=== PATIENT | male | born 1995 | race Caucasian/White ===

== ENCOUNTER 2024-10-07 15:52 | Emergency (ER) | payer MEDICAID, SELFPAY ==
[2024-10-07 16:13] VITALS: BP 153/87; PULSE 109; RESP 16; TEMP 37.3; O2SAT 97
[2024-10-07 16:26] VITALS: PULSE 120; RESP 18; O2SAT 99
--- NOTE | 2024-10-07 16:42 | EDRME_ITS ---
Rapid Medical Screening Exam E Arrival date/time: 10/07/24 15:52 29-year-old male presents via EMS patient reports [facility] Patient reports he is from [place]. Patient does admit to schizophrenia and drug abuse. Patient reports generalized body aches Vital signs: Vital Signs Temperature 99.2 F 10/07/24 16:13 Pulse Rate 109 H 10/07/24 16:13 Respiratory Rate 16 10/07/24 16:13 Blood Pressure 153/87 H 10/07/24 16:13 Pulse Oximetry (%) 97 10/07/24 16:13 Oxygen Delivery Method Room Air 10/07/24 16:13
[2024-10-07 17:24] LABS: Basophils % (Auto) 0 % (0-2.5); Eosinophils # (Auto) 0.2 Thou/mm3 (0.0-0.5); Eosinophils % (Auto) 2 % (0-10); Hematocrit 35.7 % (41.0-53.0); Hemoglobin 12.2 g/dL (13.5-16.0); Immature Granulocytes % (Auto) 1 % (0-0); Immature Granulocytes Auto 0.09 Thou/mm3 (0.00-0.00); Lymphocytes # (Auto) 2.6 Thou/mm3 (1.0-4.8); Lymphocytes % (Auto) 30 % (10-50); Mean Corpuscular HGB Conc 34.2 g/dl (31.0-37.0); Mean Corpuscular Hemoglobin 30.7 pg (25.0-35.0); Mean Corpuscular Volume 90 fL (80-100); Monocytes # (Auto) 0.9 Thou/mm3 (0.0-0.8); Monocytes % (Auto) 10 % (0-12); Neutrophils % (Auto) 56 % (37-80); Nucleated Red Blood Cell % 0 /100 WBC (0); Platelet Count 384 Thou/mm3 (140-440); RDW Standard Deviation 43.1 fL (35.1-43.9); Red Blood Count 3.97 Miln/mm3 (4.50-5.90); White Blood Count 8.8 Thou/mm3 (3.8-10.6)
[2024-10-07 17:33] LABS: Alanine Aminotransferase 70 U/L (10-49); Albumin, Serum 4.1 gm/dL (3.5-5.0); Albumin/Globulin Ratio 1.9 (1.2-2.2); Alkaline Phosphatase 72 U/L (46-116); Anion Gap 8 (7-16); Aspartate Amino Transferase 37 U/L (0-34); BUN/Creatinine Ratio 19 Ratio (12-20); Bilirubin,Total 0.3 mg/dL (0.3-1.2); Blood Urea Nitrogen 13 mg/dL (9-23); Calcium 8.2 mg/dL (8.3-10.6); Calcium (Corrected) 8.2 mg/dL (8.5-10.1); Chloride 88 mMol/L (98-107); Creatinine (Component) 0.7 mg/dL (0.6-1.3); Globulin 2.2 gm/dL (2.3-3.5); Glucose 100 mg/dL (74-106); Lipase 52 U/L (12-53); Osmolality,Calculated 251 (275-295); Potassium 3.9 mMol/L (3.4-5.1); Sodium 125 mMol/L (136-145); Total Protein 6.3 gm/dL (5.7-8.2); eGFR > 60 See Note
[2024-10-07 20:37] LABS: Collection Type, Urine Clean Catch
[2024-10-07 20:58] LABS: Bilirubin,Urine Negative (Negative); Blood,Urine Negative (Negative); Clarity,Urine Clear (Clear/Hazy); Color,Urine Colorless (Lt Yel-Yel); Culture Indicated,Urine Not Indicated; Glucose, Urine Negative (Negative); Ketones,Urine Negative (Negative); Leukocyte Esterase,Urine Negative (Negative); Nitrite,Urine Negative (Negative); Protein,Urine Negative (Neg - Trace); Specific Gravity,Urine 1.004 (1.001-1.035); Urobilinogen,Urine Negative mg/dL (0.0-1.0)
[2024-10-07 20:59] LABS: RBC,Urine 2 /hpf (0-3); Squamous Epithelial Cell,Urine 4 /hpf (0-5); WBC,Urine 2 /hpf (0-5)
[2024-10-07 21:00] LABS: Mucus,Urine 2+ /lpf
[2024-10-07 21:01] LABS: Alcohol, Urine Negative (Negative); Amphetamine/Methamp Scrn,U Negative (Negative); Barbiturate Screen,Urine Negative (Negative); Benzodiazepines Screen,Urine Negative (Negative); Benzoylecgonine Screen, Ur Negative (Negative); Fentanyl Screen,Urine Negative (Negative); Opiate Screen,Urine Negative (Negative); THC Screen,Urine Negative (Negative)
--- NOTE | 2024-10-07 21:35 | PC.NURSE ---
NO ANSWER AT ER LOBBY OR OUTSIDE ER TO BE EVALUATED.
--- NOTE | 2024-10-07 21:36 | PC.NURSE ---
NO ANSWER AT ER LOBBY OR OUTSIDE ER TO BE RE EVALUATED.
--- NOTE | 2024-10-07 22:08 | PC.NURSE ---
NO ANSWER AT ER LOBBY OR OUTSIDE ER TO BE RE EVALUATED.
== END 2024-10-07 22:09 | disposition left against medical advice (07) ==
PROVIDERS: Nurse Practitioner Primary Care; Emergency Provider Emergency Medicine
DX: R52 Pain, unspecified (principal); F20.9 Schizophrenia, unspecified; F19.10 Other psychoactive substance abuse, uncomplicated; Z53.29 Procedure and treatment not carried out because of patient's decision for other reasons
CPT/HCPCS: 36415; 80053; 80307; 80320; 81001; 83690; 85025; 99281; G0480

== ENCOUNTER 2024-12-12 19:56 | Emergency (ER) | payer MEDICAID, SELFPAY ==
[2024-12-12 19:59] VITALS: PULSE 75; O2SAT 96; BMI 27.2
[2024-12-12 20:13] VITALS: BP 124/79; PULSE 74; RESP 18; TEMP 37.1; O2SAT 97
--- NOTE | 2024-12-12 20:59 | PD.EDPSYCH ---
ED Psych RME/HPI General Chief Complaint: Psychiatric Symptoms Stated Complaint: HEARING VOICES Time Seen by Provider: 12/12/24 20:52 Arrival date/time: 12/12/24 19:56 RME / HPI RME / HPI Narrative: 29-year-old male presents to the ED with a complaint of hearing voices. He has been hearing voices for a while. He would like to be admitted for a voluntary 5150. The voices keep telling him did you do it . He denies any suicidal or homicidal ideation. I have greeted and performed a focused initial assessment of this patient. A comprehensive ED assessment and evaluation of the patient, analysis of all test results, and completion of the medical decision making process will be conducted by additional ED providers. Course Vital Signs Vital signs: Vital Signs Temperature 98.7 F 12/12/24 20:13 Pulse Rate 74 12/12/24 20:13 Respiratory Rate 18 12/12/24 20:13 Blood Pressure 124/79 12/12/24 20:13 Pulse Oximetry (%) 97 12/12/24 20:13 Oxygen Delivery Method Room Air 12/12/24 20:13 Discharge Plan Prescriptions/Referrals Referrals: No Primary/Family,Physician [Primary Care Provider] - In 1 week Patient/Caregiver Discharge Instructions Print Language: Citizen Of [place]
--- NOTE | 2024-12-12 21:01 | EDRME_ITS ---
<Statement entered by Candy Hairston MD - 12/13/24 04:07> As co-signing physician, I was present and available for consult prn. I concur with the plan and care as documented by the midlevel provider. Rapid Medical Screening Exam RME Arrival date/time: 12/12/24 19:56 Chief Complaint: Psychiatric Symptoms Time Seen by Provider: 12/12/24 20:52 Vital signs: Vital Signs Temperature 98.7 F 12/12/24 20:13 Pulse Rate 74 12/12/24 20:13 Respiratory Rate 18 12/12/24 20:13 Blood Pressure 124/79 12/12/24 20:13 Pulse Oximetry (%) 97 12/12/24 20:13 Oxygen Delivery Method Room Air 12/12/24 20:13 RME Narrative: 29-year-old male presents to the ED with a complaint of hearing voices. He has been hearing voices for a while. He would like to be admitted for a voluntary 5150. The voices keep telling him did you do it . He denies any suicidal or homicidal ideation. I have greeted and performed a focused initial assessment of this patient. A comprehensive ED assessment and evaluation of the patient, analysis of all test results, and completion of the medical decision making process will be conducted by additional ED providers.
[2024-12-12 21:39] LABS: Collection Type, Urine Clean Catch; Squamous Epithelial Cell,Urine 0 /hpf (0-5)
[2024-12-12 21:43] LABS: Bilirubin,Urine Negative (Negative); Blood,Urine Negative (Negative); Clarity,Urine Clear (Clear/Hazy); Color,Urine Lt-Yellow (Lt Yel-Yel); Culture Indicated,Urine Not Indicated; Glucose, Urine Negative (Negative); Ketones,Urine Negative (Negative); Leukocyte Esterase,Urine Negative (Negative); Nitrite,Urine Negative (Negative); PH,Urine 6.5 (5.0-7.0); Protein,Urine Negative (Neg - Trace); RBC,Urine 1 /hpf (0-3); Specific Gravity,Urine 1.026 (1.001-1.035); Urobilinogen,Urine Negative mg/dL (0.0-1.0); WBC,Urine 1 /hpf (0-5)
[2024-12-12 21:50] LABS: Amphetamine/Methamp Scrn,U Negative (Negative); Barbiturate Screen,Urine Negative (Negative); Benzodiazepines Screen,Urine Negative (Negative); Benzoylecgonine Screen, Ur Negative (Negative); Fentanyl Screen,Urine Negative (Negative); Opiate Screen,Urine Negative (Negative); THC Screen,Urine Negative (Negative)
[2024-12-12 22:00] LABS: Basophils # (Auto) 0.0 Thou/mm3 (0.0-0.2); Basophils % (Auto) 0 % (0-2.5); Eosinophils # (Auto) 0.4 Thou/mm3 (0.0-0.5); Eosinophils % (Auto) 6 % (0-10); Hematocrit 38.1 % (41.0-53.0); Hemoglobin 12.8 g/dL (13.5-16.0); Immature Granulocytes Auto 0.05 Thou/mm3 (0.00-0.00); Lymphocytes # (Auto) 3.0 Thou/mm3 (1.0-4.8); Lymphocytes % (Auto) 45 % (10-50); Mean Corpuscular HGB Conc 33.6 g/dl (31.0-37.0); Mean Corpuscular Hemoglobin 31.4 pg (25.0-35.0); Mean Corpuscular Volume 93 fL (80-100); Monocytes # (Auto) 0.8 Thou/mm3 (0.0-0.8); Monocytes % (Auto) 12 % (0-12); Neutrophils # (Auto) 2.4 Thou/mm3 (1.8-7.7); Neutrophils % (Auto) 37 % (37-80); Nucleated Red Blood Cell # 0.00 Thou/mm3 (0.00-0.00); Nucleated Red Blood Cell % 0 /100 WBC (0); Platelet Count 243 Thou/mm3 (140-440); RDW Standard Deviation 47.0 fL (35.1-43.9); Red Blood Count 4.08 Miln/mm3 (4.50-5.90); White Blood Count 6.6 Thou/mm3 (3.8-10.6)
[2024-12-12 22:19] LABS: Acetaminophen < 2.0 mcg/mL (10.0-20.0); Alcohol, Blood Medical < 3.0 mg/dL (0-10.0); Anion Gap 5 (7-16); BUN/Creatinine Ratio 14 Ratio (12-20); Blood Urea Nitrogen 13 mg/dL (9-23); Calcium 9.9 mg/dL (8.3-10.6); Carbon Dioxide 30.9 mMol/L (20.0-31.0); Chloride 104 mMol/L (98-107); Creatinine (Component) 0.9 mg/dL (0.6-1.3); Estimated Creatinine Clearance 123.9 mL/min (>60); Glucose 100 mg/dL (74-106); Osmolality,Calculated 279 (275-295); Potassium 4.2 mMol/L (3.4-5.1); Sodium 140 mMol/L (136-145); eGFR > 60 See Note
[2024-12-12 23:41] VITALS: BP 145/80; PULSE 60; RESP 17; TEMP 36.6; O2SAT 99
--- NOTE | 2024-12-13 04:03 | PD.EDPSYCH ---
ED Psych RME/HPI General Chief Complaint: Psychiatric Symptoms Stated Complaint: HEARING VOICES Time Seen by Provider: 12/12/24 20:52 Arrival date/time: 12/12/24 19:56 RME / HPI RME / HPI Narrative: 29-year-old male presents to the ED with a complaint of hearing voices. He has been hearing voices for a while. He would like to be admitted for a voluntary 5150. The voices keep telling him did you do it . He denies any suicidal or homicidal ideation. I have greeted and performed a focused initial assessment of this patient. A comprehensive ED assessment and evaluation of the patient, analysis of all test results, and completion of the medical decision making process will be conducted by additional ED providers. --------- Dr. Hairston?s Main ED Evaluation: 29yo male presents to the ED for a chief complaint of auditory hallucinations. Patient states he has been hearing voices for a while and is requesting a psychiatric evaluation. Patient denies any SI or HI. No other complaints reported. Review of Systems Review of Systems Systems Reviewed: All systems reviewed, normal except as documented Past Medical History Past Medical History NEUROLOGIC: Negative Neurological Disorders CARDIAC: Negative Cardiac Disorders or Congestive Heart Failure RESPIRATORY: Negative Respiratory Disorders or Chronic Obstructive Pulmonary Disease (COPD) GASTROINTESTINAL: Negative Gastrointestinal Disorders, Hepatitis or Colorectal Cancer GENITOURINARY: Negative Genitourinary Disorders, Renal Disease or Prostate Cancer REPRODUCTIVE: Negative Breast Cancer, Genital Herpes, Gonorrhea, Syphilis or Testicular Cancer MUSCULOSKELETAL: Negative Musculoskeletal Disorders or Bone Cancer ENT: Negative History of ENT Problems ENDOCRINE: Negative Endocrine Disorders, Diabetes Mellitus Type 1 or Diabetes Mellitus Type 2 HEMATOLOGIC: Negative Blood Disorders OTHER HISTORY: Negative Autoimmune Disease, Anesthesia Reactions, Organ Transplant, MRSA, VRSA, Vancomycin-Resistant Enterococci, Human Immunodeficiency Virus (HIV), Chicken Pox, Measles, Mumps, Rubella (Luxembourger Measles), Pertussis, Clostridium Difficile, Cancer, Breast Cancer, Colorectal Cancer, Lung Cancer, Prostate Cancer or Testicular Cancer Family History FAMILY HISTORY: Negative Family Cardiac Disorders Surgical History SURGICAL: Negative Cardiac Surgery, Endocrine Surgery, Ear Surgery, Abdominal Surgery, Penile Implant, Nephrectomy, Ureteral Stent, Transurethral Resection, Joint Replacement, Neurologic Surgery, Brain Shunt, Vasectomy, Organ Transplant or ESWL Social History SMOKING STATUS: Current every day smoker ED Exam Narrative Physical exam: GENERAL APPEARANCE: alert and oriented x 4, well-developed, well-nourished, no acute distress VITALS: All vitals were reviewed and the pulse ox is 99% on room air, which is normal according to my interpretation. HEENT: Normocephalic, atraumatic; pupils equal, round, reactive to light; EOMI; mucous membranes pink, moist; oropharynx clear NECK: Supple LUNGS: CTABL; no wheezes, no rales, no rhonchi HEART: Regular rate, regular rhythm; normal S1, S2; no murmurs ABDOMEN: non distended; normal BS; soft, no tenderness, no guarding, no rebound; no masses, no organomegaly, no hernia BACK: no CVA tenderness EXTREMITIES: atraumatic; no edema NEUROLOGIC: awake; alert and oriented x4; cranial nerves II-XII grossly intact; no focal sensory or motor deficits PSYCHIATRIC: appropriate mood and affect SKIN: warm, dry, normal color; no rashes Course Quality Measures none Orders Category Date Time Status Acetaminophen Stat Lab 12/12/24 21:30 Completed Alcohol, Blood Medical Stat Lab 12/12/24 21:30 Completed Basic Metabolic Panel Stat Lab 12/12/24 21:30 Completed CBC Stat Lab 12/12/24 21:30 Completed Drug Screen,Urine Stat Lab 12/12/24 21:30 Completed Urinalysis, C/S if Indicated Stat Lab 12/12/24 21:30 Completed Vital Signs Vital signs: Vital Signs Temperature 98.7 F 12/12/24 20:13 Pulse Rate 74 12/12/24 20:13 Respiratory Rate 18 12/12/24 20:13 Blood Pressure 124/79 12/12/24 20:13 Pulse Oximetry (%) 97 12/12/24 20:13 Oxygen Delivery Method Room Air 12/12/24 20:13 Psych MDM Narrative MDM Narrative:: Scribe Attestation: 12/13/24 - Joana Grossman am scribing for and in the presence of Dr. Hairston. Patient is medically clear for crisis evaluation. Patient data External records reviewed:: [facility] previous records (Per chart review, patient has no previous ED visits or admissions to this facility.) Clinical information provided by:: patient Social determinants that could affect healthcare access:: none Patient has the following chronic illnesses:: none How is presenting disease/condition affected by chronic disease/condition?: no chronic disease Evaluation data The following diagnostics were reviewed and interpreted by me:: lab results Lab and/or radiology exams considered but not ordered:: none Interpretation Summary: CBC normal, BMP normal, UA unremarkable, UDS negative, Blood Alcohol negative. Medications / Prescriptions Medications or Prescriptions considered but not ordered:: none Medication administrations:: none Consultations Consultation(s) initiated? (list below): No Diagnosis Psych Differential Diagnosis: other (hallucination, schizophrenia, drug-induced psychosis) Most likely diagnosis given after review of the tests above:: see clinical impression below Admission Indicated Admission indicated?: not indicated Admission Request Was there a request for admission?: No Disposition Plan Disposition Plan: other (specify) (Signed out to Dr. Suarez at 0600 pending crisis evaluation.) Discharge Plan Prescriptions/Referrals Referrals: No Primary/Family,Physician [Primary Care Provider] - In 1 week Problem List Clinical Impression: Auditory hallucinations Patient/Caregiver Discharge Instructions Print Language: [place]
--- NOTE | 2024-12-13 06:26 | EDNOTE_ITS ---
Emergency Room Addendum <Tatyana Holly - Last Filed: 12/13/24 08:03> Addendum Narrative: 0600: Care assumed from Dr. Hairston, the previous shift emergency physician. Past medical, surgical, social and family history reviewed. Vitals and home medications reviewed. I will assume the care of the patient at this time, pending mental health evaluation. Please refer to the emergency department record for history and examination from initial visit.?The following addendum documentation note is intended to reflect any pending information, findings, or radiology results not included in the patient?s initial chart. 0800: bilingual social worker reports she was met with and evaluated the patient. Reports at this time he is not suicidal or homicidal and provided patient with resources. Patient was provided with shower, food, and clothing in the ED. <Samuel Suarez MD - Last Filed: 12/13/24 17:39> Addendum Narrative: 0600: Care assumed from Dr. Hairston, the previous shift emergency physician. Past medical, surgical, social and family history reviewed. Vitals and home medications reviewed. I will assume the care of the patient at this time, pending mental health evaluation. Please refer to the emergency department record for history and examination from initial visit.?The following addendum documentation note is intended to reflect any pending information, findings, or radiology results not included in the patient?s initial chart. Patient was seen by mental health and cleared. He also got a shower he has eaten he is ambulatory his vital signs are good. He is medically cleared and mental health has cleared him. Patient was given resources. He is alert awake standing walking appears healthy in no distress. 0800: bilingual social worker reports she was met with and evaluated the patient. Reports at this time he is not suicidal or homicidal and provided patient with resources. Patient was provided with shower, food, and clothing in the ED.
[2024-12-13 07:27] VITALS: BP 139/80; PULSE 68; RESP 17; TEMP 36.7; O2SAT 98
--- NOTE | 2024-12-13 07:33 | PC.CC ---
Addendum entered by Elizabeth Bradford 12/13/24 08:56: ASW staffed the case with [facility], Director Michelle Augustine and it was determined that the best course action would be to provide pt community resources and refer him to [facility] for psychiatric/ therapeutic services. ASW offered a referral to [facility] for psychiatric/therapeutic services and he laughed and declined. Pt stated, I don't need that. ASW left the community resources on pts bed for further review. RN is aware as well as ER provider. Original Note: Pt is a 29-year-old, , male who presented to the ED on 12/12/24 requesting a voluntary mental health evaluation due to hearing voices. ASW-Elizabeth Bradford met with patient [id number] to complete assessment. ASW introduced self, role, and reason for assessment. ASW disclosed limits of confidentiality as well. Patient appeared alert and oriented to self, place, and situation. Patient was pleasant; pt had just woken up and was groggy; his behavior appeared dishevled and tired. Patient?s thought process was linear and organized. No signs of delusions, paranoid, but admitted to non-commanding auditory hallucinations. Pt reported that he arrived to the hospital yesterday because he was overheated, overwhelmed and began to hear voices and his anxiety increased. Pt reports he does not see anyone for mental health purposes nor does he take medications to treat anxiety or the auditory hallucinations. Pt reports he has heard voices for a long time now but could not provide a timeline. Pt reports he is unhoused and lives in the community. Pt reports he generally stays at the care home but was unable to get into the care home last night. Pt reported he was hungry as well and needed rest. Pt strongly denied SI/HI. Pt states he is homeless but has never thought of ending his life due to his living situation, as he reports he has personal reasons to live. Pt reports he is willing to attend mental health treatment and ASW provided the pt with community resources to [facility] MH agencies as well as local MH agencies. Pt was receptive. Pt was offered clothes and he accepted.
--- NOTE | 2024-12-13 07:37 | PC.NURSE ---
PT WAS TAKEN TO TAKE A SHOWER, AND WAS GIVEN NEW CLOTHING.
--- NOTE | 2024-12-13 08:07 | PC.NURSE ---
PT GIVEN FOOD AND DRINK
[2024-12-13 08:43] VITALS: BP 123/73; PULSE 64; RESP 16; TEMP 36.8; O2SAT 98
== END 2024-12-13 08:44 | disposition home or self-care (01) ==
PROVIDERS: Physician Assistant; Emergency Provider Emergency Medicine
DX: R44.0 Auditory hallucinations (principal)
CPT/HCPCS: 36415; 80048; 80307; 80320; 80329; 81001; 85025; 96127; 99283; G0480